=== PATIENT | female | born 1970 | race African-American/Black ===

== ENCOUNTER 2016-05-15 19:00 | Emergency (ER) | payer MEDICAID ==
[~2016-05-15] VITALS: Ht 165.1 cm; Wt 98.4 kg
[2016-05-15 19:23] VITALS: BP 145/100
[2016-05-15] MEDS ORDERED: cefTRIAXone SOD 1,000 MG VL IM ONE (22:45)
[2016-05-15] MEDS ORDERED: HYDROcodone-ACET 5/325MG TAB PO ONE (22:45)
== END 2016-05-15 23:08 | disposition home or self-care (01) ==
LOC: ER 19:11
DX: K04.7 Periapical abscess without sinus (principal); J45.909 Unspecified asthma, uncomplicated; G43.909 Migraine, unspecified, not intractable, without status migrainosus; Z88.8 Allergy status to other drugs, medicaments and biological substances
CPT/HCPCS: 96372; 99283; J0696